=== PATIENT | female | born 1990 | race Two or more races ===

== ENCOUNTER 2017-03-09 23:31 | Emergency (ER) | payer SELFPAY ==
[~2017-03-09] VITALS: Ht 160 cm; Wt 67.6 kg
[2017-03-09 23:43] VITALS: BP 128/73
[2017-03-10 00:14] LABS: BILIRUBIN,URINE NEGATIVE (NEG); GLUCOSE,URINE NEGATIVE (NEG); NITRITE,URINE NEGATIVE (NEG); PROTEIN,URINE 30 mg/dL (NEG-TRACE); UROBILINOGEN,URINE 0.2 mg/dL (0.2 mg/dL)
[2017-03-10 00:24] LABS: BACTERIA,URINE FEW /HPF (0-FEW); SQUAMOUS EPITHELIAL CELL,UR FEW /LPF; WBC,URINE TNTC /HPF (0-4)
[2017-03-10] MEDS ORDERED: NAPR250T6 PO (01:55)
[2017-03-10] MEDS ORDERED: PHEN-318 PO (01:55)
[2017-03-10] MEDS ORDERED: LEVO750T31 PO (01:55)
[2017-03-10] MEDS ORDERED: PHENAZOPYRIDINE 200 MG TABLET. PO ONE (02:00)
[2017-03-10] MEDS ORDERED: NAPROXEN 500 MG TABLET PO ONE (02:00)
--- NOTE | 2017-03-10 02:36 | ED.ADGEN ---
Past Medical History Past Medical History: No Pertinent History Past Surgical History: Tonsillectomy Alcohol Use: None Drug Use: None Adult General Chief Complaint Chief Complaint: ABDOMINAL PAIN HPI HPI Patient is a 26 year old woman, with no significant past no history, who presents to the emergency department with a complaint of bladder spasm, and dysuria, which has been progressively worsening over the past several days. Patient states her symptoms began 4 days ago, initially she states that there was a cramping pain with urgency and a feeling of incomplete voiding when she attempted to urinate. She states that she is having sometimes pinkish discharge with urination, and occasional low back pain. She denies any nausea or vomiting , any fevers or chills, any weakness, numbness, tingling, rashes, recent travel or surgery, any injuries, has not taken any medication prior to coming to the ED. Patient is afebrile, noted be mildly tachycardic with a heart rate of 103 upon arrival in the ED, does appear uncomfortable. Patient speaks Macedonian and [place], and patient's [id number] is assisting with translation at bedside patient's request. Patient has not previously had any urinary tract infections, denies any concerns for STI exposures, any vaginal discharge or drainage. Patient has an appointment on Tuesday to be seen by a clinic provider Review of Systems Review of Systems Constitutional: Denies fever or chills. [] Eyes: Denies change in visual acuity. [] HENT: Denies nasal congestion or sore throat. [] Respiratory: Denies cough or shortness of breath. [] Cardiovascular: Denies chest pain or edema. [] GI: Denies nausea, vomiting, bloody stools or diarrhea. Complaining of suprapubic abdominal pain. : Denies dysuria. [] Musculoskeletal: Denies joint pain. [] Complaining of occasional low back pain. Integument: Denies rash. [] Neurologic: Denies headache, focal weakness or sensory changes. [] Endocrine: Denies polyuria or polydipsia. [] Lymphatic: Denies swollen glands. [] Psychiatric: Denies depression or anxiety. [] Current Medications Current Medications Current Medications Medications (Trade) Dose Ordered Sig/Becky Start Time Stop Time Status Last Admin Dose Admin Levofloxacin (Levaquin) 750 mg 1X ONCE 03/10/17 02:00 03/10/17 02:01 DC 10/12/17 02:10 750 MG Naproxen (Naprosyn) 500 mg 1X ONCE 03/10/17 02:00 03/10/17 02:01 DC 03/10/17 02:10 500 MG Phenazopyridine HCl (Pyridium) 200 mg 1X ONCE 03/10/17 02:00 03/10/17 02:01 DC 03/10/17 02:11 200 MG Allergies Allergies Allergies Coded Allergies Type Severity Reaction Last Updated Verified No Known Drug Allergies 03/10/17 No Physical Exam Physical Exam Constitutional: Well developed, well nourished, appears uncomfortable, non- toxic appearance. [] HENT: Normocephalic, atraumatic, bilateral external ears normal, oropharynx moist, no oral exudates, nose normal. [] Eyes: PERRLA, EOMI, conjunctiva normal, no discharge. [] Neck: Normal range of motion, no tenderness, supple, no stridor. [] Cardiovascular:Heart rate regular rhythm, no murmur, S1, S2, rubs or gallops. [] Lungs & Thorax: Bilateral breath sounds clear to auscultation, no wheezing, rhonchi, rales. No chest or crepitus or tenderness. [] Abdomen: Bowel sounds normal, soft, mild tenderness to palpation in the suprapubic region, no right or left lower quadrant tenderness, no epigastric or upper abdominal tenderness, no rebound, rigidity, no guarding, no masses, no pulsatile masses. [] Skin: Warm, dry, no erythema, no rash. [] Back: No tenderness, no CVA tenderness. [] Extremities: No tenderness, no cyanosis, no clubbing, ROM intact, no edema. Negative Homans sign.[] Neurologic: Alert and oriented X 3, normal motor function, normal sensory function, no focal deficits noted. [] Psychologic: Affect normal, judgement normal, mood normal. [] Current Patient Data Vital Signs Vital Signs Date Time Temp Pulse Resp B/P (MAP) Pulse Ox O2 Delivery O2 Flow Rate FiO2 03/09/17 23:43 99.4 109 17 128/73 (91) 98 Room Air 99.4 Lab Values Laboratory Tests Test 03/09/17 23:46 03/10/17 00:00 POC Urine HCG, Qualitative Hcg negative (Negative) Urine Collection Type Unknown Urine Color Yellow Urine Clarity Cloudy Urine pH 8.0 Urine Specific [place] 1.010 Urine Protein 30 mg/dL (NEG-TRACE) Urine Glucose (UA) Negative mg/dL (NEG) Urine Ketones (Stick) Negative mg/dL (NEG) Urine Blood Small (NEG) Urine Nitrite Negative (NEG) Urine Bilirubin Negative (NEG) Urine Urobilinogen Dipstick 0.2 mg/dL (0.2 mg/dL) Urine Leukocyte Esterase Large (NEG) Urine RBC 3-5 /HPF (0-2) Urine WBC Tntc /HPF (0-4) Urine Squamous Epithelial Cells Few /LPF Urine Bacteria Few /HPF (0-FEW) EKG EKG ECG: Rhythm strip: Heart rate 102 bpm, sinus tachycardia, no ectopy. As interpreted by me.[] Radiology/Procedures Radiology/Procedures Not indicated.[] Course & Med Decision Making Course & Med Decision Making Pertinent Labs and Imaging studies reviewed. (See chart for details) Patient is afebrile, although temperature is 99.4 orally, is taking by mouth fluids and food without issue, mild tachycardia at 103-104 bpm. Blood pressure within normal limits. Patient is well-appearing, and more comfortable on reevaluation after urinalysis obtained. Urinalysis reveals too numerous to count white blood cells and bacteria. Lengthy discussion at bedside with patient , she has no CVA tenderness, and tenderness is isolated to the suprapubic region , no anorexia, no pain with motion or ambulation, with symptoms that are consistent with urinary tract infection which has now progressed to pyelonephritis. Patient complains of occasional cramping in the back, but has no tenderness in this region, or other indications for additional imaging or laboratory studies at this time based on her history and physical examination. Patient is tolerating food and fluid without issue, was given first dose of Pyridium, naproxen, and Levaquin in the ED without issue. Patient would like to be discharged home, on and an oral course of medication, additionally she does have a follow-up appointment on Tuesday, in 6 days, where test of cure can be obtained. Did discuss with patient and [id number] at bedside at length symptoms that would prompt return to the ED for additional evaluation, importance of taking medications as directed, and importance of hydration. Patient voiced understanding and agreement, to return to the ED if any new or concerning symptoms develop or if she is unable tolerate her medications, and to follow-up on Tuesday with her clinic appointment. Rodney Disclaimer Rodney Disclaimer This electronic medical record was generated, in whole or in part, using a voice recognition dictation system. Departure Impression: Primary Impression: Pyelonephritis Disposition: HOME, SELF-CARE Condition: STABLE Scripts Levofloxacin (LEVAQUIN) 750 Mg Tablet 1 TAB PO DAILY, #5 TAB Prov: ANA CRISTINA NORRIS DO 03/10/17 Phenazopyridine Hcl (PYRIDIUM) 200 Mg Tablet 200 MG PO PRN Y for BLADDER SPASM, #12 TAB Prov: ANA CRISTINA NORRIS DO 03/10/17 Naproxen (NAPROXEN) 250 Mg Tablet 250 MG PO BID Y for PAIN, #10 Prov: ANA CRISTINA NORRIS DO 03/10/17 ANA CRISTINA NORRIS DO Mar 10, 2017 02:36
== END 2017-03-10 02:11 | disposition home or self-care (01) ==
LOC: ER 23:31
DX: N12 Tubulo-interstitial nephritis, not specified as acute or chronic (principal)
CPT/HCPCS: 81001; 81025; 87086; 99284